=== PATIENT | male | born 1960 | race Caucasian/White ===

== ENCOUNTER 2018-01-30 08:20 | Outpatient (CLI) | payer OTHER | END 2018-01-30 08:29 | disposition home or self-care (01) | LOC: LAB 08:20 | DX: Z11.4 Encounter for screening for human immunodeficiency virus [HIV] (principal) ==

== ENCOUNTER 2018-01-30 09:44 | Outpatient (CLI) | payer OTHER | END 2018-01-30 09:55 | disposition home or self-care (01) | LOC: TOM 09:44 | DX: J38.2 Nodules of vocal cords (principal); B20 Human immunodeficiency virus [HIV] disease; F17.290 Nicotine dependence, other tobacco product, uncomplicated ==